=== PATIENT | female | born 1955 | race Caucasian/White ===

== ENCOUNTER 2018-12-30 22:55 | Emergency (ER) ==
[2018-12-30 22:57] VITALS: BP 148/92; TEMP 97.9; BMI 18.8
[2018-12-30] MEDS ORDERED: DUONEB NEB STA (23:02)
--- NOTE | 2018-12-30 23:13 | ED.PDOC ---
General ED Provider: Dr. MARIA VICTORIA GANDARA Chief Complaint: Shortness of Air Stated Complaint: sudden onset of shortness of breath that started prior to arrival. No prior history Time Seen by Physician: 23:04 Mode of Arrival: Wheelchair Information Source: Patient Nursing and Triage Documentation Reviewed and Agree: Yes Does patient meet sepsis criteria?: No System Inflammatory Response Syndrome: Not Applicable Sepsis Protocol: For patient's 13 years and over: Temp is 96.8 and below OR 101 and greater Pulse >90 BPM Resp >20/minute Acutely Altered Mental Status Are patient's symptoms suggestive of a new infection, such as: -Pneumonia -Skin, Soft Tissue -Endocarditis -UTI -Bone, Joint Infection -Implantable Device -Acute Abdominal Infection -Wound Infection -Meningitis -Blood Stream Catheter Infection -Unknown Respiratory Complaint Exam - Shortness of Air Complaint/Exam Onset/Duration: just prior to arrival Symptoms Are: Still present Timing: Constant Initial Severity: Severe Current Severity: Severe Character: Reports: Dyspnea at rest Aggravating: Reports: URI, Weather Alleviating: Reports: Bronchodilators Associated Signs and Symptoms: Reports: Cough, Wheezing, Chills Pulmonary Embolism Risk Factors: Reports: None Cardiac Risk Factors: Reports: None Pseudomonas Risk Factors: Reports: None Tuberculosis Risk Factors: Reports: None Home Oxygen Use: No Recent Stress Test: No Recent Echo/LV Function: No Respiratory Distress: Severe Stridor Present: No Tracheal Deviation: No Subcutaneous Emphysema: No Accessory Muscle Use: Yes Retractions: Supraclavicular Diminished Breath Sounds: No Prolonged Expiratory Phase: No Unable to Speak Full Sentences: Yes Fatigue: No Leg Swelling: No Maribell's Sign Present: No Grunting Respirations: No Kussmaul Respirations: No Differential Diagnoses: Asthma, Pulmonary Edema, Pneumonia, Bronchitis, Bronchiolitis, URI Review of Systems - Review Of Systems Constitutional: Reports: Chills, Diaphoresis, Other (weight loss ) Respiratory: Reports: Cough, Short of air, Wheezing Cardiac: Reports: No symptoms GI: Reports: No symptoms : Reports: No symptoms Musculoskeletal: Reports: No symptoms Skin: Reports: No symptoms Neurological: Reports: Anxiety Endocrine: Reports: Increased thirst, Increased urine, Unexplained weight loss Hematologic/Lymphatic: Reports: No symptoms All Other Systems: Reviewed and Negative Past Medical History - Past Medical History Previously Healthy: Yes Endocrine: Reports: None Cardiovascular: Reports: None Respiratory: Reports: None Hematological: Reports: None Gastrointestinal: Reports: None Genitourinary: Reports: None Neuro/Psych: Reports: None Musculoskeletal: Reports: None Cancer: Reports: None Last Menstrual Period: none - Surgical History General Surgical History: Reports: None - Family History Family History: Reports: Diabetes - Social History Smoking Status: Current every day smoker, Heavy tobacco smoker Hx Substance Use: No Alcohol Screening: None - Immunizations Tetanus Shot up to Date: Yes Physical Exam - Physical Exam Appearance: Ill-appearing, Thin Ill-appearing: Severe Neck: Supple Respiratory: Rhonchi Cardiovascular: Tachycardia GI/: Soft, Nontender, No masses, Bowel sounds normal, No Organomegaly Musculoskeletal: Normal strength, ROM intact, No edema, No calf tenderness Skin: Warm, Dry, Normal color Neurological: Sensation intact, Motor intact, Cranial nerves intact, Alert, Oriented Psychiatric: Anxious Interpretation - Radiology Interpretation Radiology Interpretation By: ED Physician Radiology Results: Positive Exam Interpreted: Portable CXR (Pneumonia ) Radiology Results: Positive (for pneumonia but no PE) Exam Interpreted: CT Scan, Other (ct chest) - Payroll And Benefits Coordinator Rate: Tachy Rhythm: Sinus - EKG Interpretation Time of EKG #1: 23:14 Rate: Tachy Rhythm: Sinus Ectopy: None [place]: NL ST Segment: Normal Interpretation: Sinus Tachycardia Re-Evaluation - Re-Evaluation Time of Re-Evaluation: 01:58 Status: Improved Vital Signs Stable: Yes Appearance: Other (mild distress but comfortable) Lungs: Other (some wheezing persitst) Neuro: Alert and Oriented X3 CV: Other (Tachycarida) Physician Notification - Case Discussed Physician Notified: [place] Time of Notification: 01:55 (accepted for transfer ) Critical Care Note - Critical Care Note Total Time (mins): 40 Course - Course Hematology/Chemistry: 12/30/18 23:25 12/30/18 23:25 Orders, Labs, Meds: Lab Review 12/30/18 12/30/18 12/30/18 22:02 23:25 23:25 WBC 22.19 H RBC 4.45 Hgb 11.7 L Hct 38.9 MCV 87.4 MCH 26.3 L MCHC 30.1 L RDW Coeff of Shirley 15.1 H Plt Count 571 H Neutrophils % (Manual) 51.0 Lymphocytes % (Manual) 40.0 Monocytes % (Manual) 4.0 Eosinophils % (Manual) 3.0 Metamyelocytes % 2.0 Anisocytosis Not present D-Dimer (Manual) Puncture Site Rbrach O2 Saturation 91.0 L ABG pH 7.284 L* ABG pCO2 35.0 ABG pO2 68.0 L ABG HCO3 16.6 L ABG Total CO2 18 L ABG Base Excess -10 L Tyler Test + FiO2 % 21.0 Sodium 136.3 Potassium 4.24 Chloride 105.7 Carbon Dioxide 17.0 L Anion Gap 17.84 BUN 10.9 Creatinine 0.90 Estimated GFR (MDRD) 63.00 BUN/Creatinine Ratio 12.11 Glucose 349.6 H Hemoglobin A1c Lactic Acid Calcium 8.95 Total Bilirubin 0.23 AST 21.9 ALT 18.2 Alkaline Phosphatase 121.3 Total Creatine Kinase 57.2 Troponin I 0.016 NT-Pro-B Natriuret Pep Total Protein 7.13 Albumin 3.65 Globulin 3.48 Albumin/Globulin Ratio 1.04 Procalcitonin Acetone, Qual 12/30/18 12/30/18 12/30/18 23:25 23:25 23:25 WBC RBC Hgb Hct MCV MCH MCHC RDW Coeff of Shirley Plt Count Neutrophils % (Manual) Lymphocytes % (Manual) Monocytes % (Manual) Eosinophils % (Manual) Metamyelocytes % Anisocytosis D-Dimer (Manual) 829.52 Puncture Site O2 Saturation ABG pH ABG pCO2 ABG pO2 ABG HCO3 ABG Total CO2 ABG Base Excess Tyler Test FiO2 % Sodium Potassium Chloride Carbon Dioxide Anion Gap BUN Creatinine Estimated GFR (MDRD) BUN/Creatinine Ratio Glucose Hemoglobin A1c Lactic Acid 4.82 H Calcium Total Bilirubin AST ALT Alkaline Phosphatase Total Creatine Kinase Troponin I NT-Pro-B Natriuret Pep Total Protein Albumin Globulin Albumin/Globulin Ratio Procalcitonin 0.08 Acetone, Qual 12/30/18 12/30/18 12/31/18 23:25 23:25 00:29 WBC RBC Hgb Hct MCV MCH MCHC RDW Coeff of Shirley Plt Count Neutrophils % (Manual) Lymphocytes % (Manual) Monocytes % (Manual) Eosinophils % (Manual) Metamyelocytes % Anisocytosis D-Dimer (Manual) Puncture Site O2 Saturation ABG pH ABG pCO2 ABG pO2 ABG HCO3 ABG Total CO2 ABG Base Excess Tyler Test FiO2 % Sodium Potassium Chloride Carbon Dioxide Anion Gap BUN Creatinine Estimated GFR (MDRD) BUN/Creatinine Ratio Glucose Hemoglobin A1c 5.62 Lactic Acid Calcium Total Bilirubin AST ALT Alkaline Phosphatase Total Creatine Kinase Troponin I NT-Pro-B Natriuret Pep 6240.000 H Total Protein Albumin Globulin Albumin/Globulin Ratio Procalcitonin Acetone, Qual None Orders Category Date Time Status ABG DRAW REQUEST Stat CARDIO 12/30/18 23:02 Completed EKG-(ED ONLY) Stat CARDIO 12/30/18 23:02 Completed NEBULIZER TREATMENT Stat CARDIO 12/30/18 23:02 Completed NEBULIZER TREATMENT Stat CARDIO 12/30/18 23:32 Completed NPO REMINDER: IMAGING ONCE CARE 12/31/18 00:29 Completed ED APPLY O2 .ONCE EMERGENCY 12/30/18 23:02 Active ED ELEVATOR INSPECTOR APPLIED .ONCE EMERGENCY 12/30/18 23:02 Active ED IV/MEDIPORT/POWERPORT .ONCE EMERGENCY 12/30/18 23:02 Active ABG Stat LAB 12/30/18 22:02 Completed ACETONE, QUALITATIVE Stat LAB 12/30/18 23:25 Completed BLOOD CULTURE Stat LAB 12/30/18 23:25 Received CBC W/ AUTO DIFF Stat LAB 12/30/18 23:25 Completed COMPREHENSIVE METABOLIC PANEL Stat LAB 12/30/18 23:25 Completed CREATINE KINASE Stat LAB 12/30/18 23:25 Completed D-DIMER Stat LAB 12/30/18 23:25 Completed HEMOGLOBIN A1C Stat LAB 12/30/18 23:25 Completed LACTIC ACID Stat LAB 12/30/18 23:25 Completed MANUAL DIFFERENTIAL Stat LAB 12/30/18 23:25 Completed PRO-BNP [NT-PROBNP] Stat LAB 12/31/18 00:29 Completed PROCALCITONIN Stat LAB 12/30/18 23:25 Completed TROPONIN I Stat LAB 12/30/18 23:25 Completed URINALYSIS C & S IF INDICATED Stat LAB 12/30/18 23:54 Uncollected URINALYSIS C & S IF INDICATED Stat LAB 12/30/18 23:55 Uncollected 0.9 % Sodium Chloride [Saline Flush] MEDS 12/30/18 23:02 Ordered 1 syr IVF PRN PRN Azithromycin [Zithromax] MEDS 12/30/18 23:30 Discontinued 500 mg PO ONCE STA Ceftriaxone Sodium [Rocephin] MEDS 12/30/18 23:33 Discontinued 1 gm .ROUTE .STK-MED ONE Ceftriaxone Sodium [Rocephin] 1 gm MEDS 12/30/18 23:29 Discontinued 0.9 % Sodium Chloride [Sodium Chloride] 50 ml IV ONCE Ipratropium/Albuterol Neb [Duoneb] MEDS 12/30/18 23:02 Discontinued 1 vial NEB ONCE STA Levalbuterol HCl [Xopenex 1.25 mg] MEDS 12/30/18 23:32 Discontinued 1 vial NEB ONCE STA Ringers Lactated Solution [Lactated Ringers] 1,000 ml MEDS 12/30/18 23:47 Discontinued IV BOLUS CHEST, 1V AP ONLY Stat RADS 12/30/18 23:[address] CHEST PE PROTOCOL Stat RADS 12/31/18 00:29 Completed Medications Generic Name Dose Route Start Last Admin Trade Name Freq PRN Reason Stop Dose Admin Sodium Chloride 1 syr 12/30/18 23:02 Saline Flush IVF PRN PRN To flush IV Discontinued Medications Generic Name Dose Route Start Last Admin Trade Name Freq PRN Reason Stop Dose Admin Albuterol/Ipratropium 1 vial 12/30/18 23:02 12/30/18 23:10 Duoneb NEB 12/30/18 23:03 1 vial ONCE STA Administration Azithromycin 500 mg 12/30/18 23:30 12/30/18 23:41 Zithromax PO 12/30/18 23:31 500 mg ONCE STA Administration Ceftriaxone Sodium 1 gm/ 50 mls @ 75 mls/hr 12/30/18 23:29 12/30/18 23:42 Sodium Chloride IV 12/31/18 00:08 75 mls/hr ONCE STA Administration Lactated Ringer's 1,000 mls @ 1,000 mls/hr 12/30/18 23:47 12/31/18 00:07 Lactated Ringers IV 12/31/18 00:46 1,000 mls/hr BOLUS STA Administration Levalbuterol HCl 1 vial 12/30/18 23:32 12/30/18 23:35 Xopenex 1.25 Mg NEB 12/30/18 23:33 1 vial ONCE STA Administration Vital Signs: Temp Pulse Resp BP Pulse Ox 12/30/18 22:55 97.9 F 123 H 28 H 148/92 H 87 L Departure - Departure Time of Disposition: 01:57 Disposition: TSF SHORT-TRM HOSP Discharge Problem: Hyperglycemia Pneumonia Qualifiers: Pneumonia type: due to unspecified organism Laterality: bilateral Lung location : lower lobe of lung Qualified Code(s): J18.1 - Lobar pneumonia, unspecified organism CHF (congestive heart failure) Qualifiers: Heart failure type: unspecified Heart failure chronicity: acute Qualified Code( s): I50.9 - Heart failure, unspecified Instructions: Bacterial Pneumonia (ED) Condition: Fair Pt referred to PMD for follow-up: No IPMP verified?: No Allergies/Adverse Reactions: Allergies No Known Allergies Allergy (Unverified 12/30/18 22:57) Home Medications: Ambulatory Orders 1 [No Reported Medications] 12/30/18 Disposition Discussed With: Patient, Family
[2018-12-30] MEDS ORDERED: ROCEPHIN 1 GM in SODIUM CHLORIDE 50 ML IV STA (23:29)
[2018-12-30] MEDS ORDERED: ZITHROMAX PO STA (23:30)
[2018-12-30] MEDS ORDERED: XOPENEX 1.25 MG NEB STA (23:32)
[2018-12-30] MEDS ORDERED: ROCEPHIN ONE (23:33)
[2018-12-30] MEDS ORDERED: LACTATED RINGERS 1,000 ML IV STA (23:47)
--- NOTE | 2018-12-31 00:14 | DI ---
EXAM: AP single view of the chest. HISTORY: Shortness of breath. FINDINGS: The bones are unremarkable. The cardiac silhouette is enlarged. There is pulmonary edema. There are small bilateral pleural effusions. There is bibasilar consolidation. There are calcifie d granulomas. Impression: Cardiomegaly with pulmonary edema. Bibasilar atelectasis and/or pneumonia. Small bilateral pleural effusions.
--- NOTE | 2018-12-31 01:39 | CT ---
EXAM: CTA chest HISTORY: Shortness of breath COMPARISON: None. FINDINGS: Contiguous axial images were obtained through the thorax and venous contrast utilizing 3-m m collimation. Sagittal and coronal reconstructions were imaged and reviewed. Source images were ut ilized to create rotating 3-D MIP images.. The thoracic inlet is unremarkable. Calcified subcarinal lymph node is noted. There are subcentimeter bilateral hilar lymph nodes. The heart is enlarged wi th coronary artery calcification. The heart is enlarged without pericardial effusion. There is a ri ght pleural effusion measuring 3.2 cm AP dimension and a left pleural effusion measuring 2 cm AP dime nsion . Diffuse ground-glass opacity with more confluent opacity in the lower lobes. There is no ev idence of pulmonary embolus IMPRESSION: No evidence of pulmonary embolus. Cardiomegaly with diffuse ground-glass opacity with more confluent infiltrates at the lung bases. Fi ndings are in keeping with pulmonary edema with bilateral pleural effusions right greater than left . Bibasilar pneumonia and/or atelectasis is not excluded.
== END 2018-12-31 03:42 | disposition short-term general hospital (02) ==
LOC: ED 22:55
DX: R06.02 Shortness of breath (principal); R06.00 Dyspnea, unspecified; J06.9 Acute upper respiratory infection, unspecified; R05 Cough; R06.2 Wheezing; R61 Generalized hyperhidrosis; R63.4 Abnormal weight loss; F41.9 Anxiety disorder, unspecified; Z72.0 Tobacco use; R73.9 Hyperglycemia, unspecified; J18.1 Lobar pneumonia, unspecified organism; I50.9 Heart failure, unspecified
CPT/HCPCS: 36415; 80053; 82009; 82550; 82803; 83036; 83605; 83880; 84145; 84484; 85007; 85025; 85379; 87040; 93005; 93010; 94640; 96361; 96365; 99285

== ENCOUNTER 2019-01-10 08:46 | Outpatient (CLI) ==
[2018-12-31 13:13] VITALS: BMI 18.8
== END 2019-01-10 08:47 | disposition home or self-care (01) ==
LOC: CAR 08:46
PROVIDERS: ATTEND Internal Medicine
DX: R06.02 Shortness of breath (principal)

== ENCOUNTER 2019-06-03 09:11 | Outpatient (CLI) ==
[2018-12-31 13:13] VITALS: BMI 18.8
== END 2019-06-03 09:12 | disposition home or self-care (01) ==
LOC: LAB 09:11
PROVIDERS: ATTEND Internal Medicine
DX: D64.9 Anemia, unspecified (principal)
CPT/HCPCS: 36415; 82607; 82728; 82746; 83540; 83550; 85025; 85045

== ENCOUNTER 2019-06-10 08:48 | Outpatient (CLI) ==
[2018-12-31 13:13] VITALS: BMI 18.8
== END 2019-06-10 08:49 | disposition home or self-care (01) ==
LOC: LAB 08:48
PROVIDERS: ATTEND Internal Medicine
DX: R79.9 Abnormal finding of blood chemistry, unspecified (principal)
CPT/HCPCS: 36415; 85025

== ENCOUNTER 2019-06-18 09:16 | Outpatient (CLI) ==
[2018-12-31 13:13] VITALS: BMI 18.8
== END 2019-06-18 09:17 | disposition home or self-care (01) ==
LOC: LAB 09:16
PROVIDERS: ATTEND Internal Medicine
DX: R79.9 Abnormal finding of blood chemistry, unspecified (principal)
CPT/HCPCS: 36415; 85025

== ENCOUNTER 2019-06-20 09:47 | Outpatient (CLI) ==
[2018-12-31 13:13] VITALS: BMI 18.8
== END 2019-06-20 09:48 | disposition home or self-care (01) ==
LOC: LAB 09:47
PROVIDERS: ATTEND Internal Medicine
DX: D64.9 Anemia, unspecified (principal)
CPT/HCPCS: 36415; 85025